=== PATIENT | male | born 1950 | race Caucasian/White ===

== ENCOUNTER → 2023-12-09 08:00 | Outpatient (REF) | payer OTHER, SELFPAY | LOC: RAD 08:00 | PROVIDERS: ATTENDING PHYSICIAN Family Medicine | DX: I71.21 Aneurysm of the ascending aorta, without rupture (principal) | CPT/HCPCS: 71275; Q9967 ==

== ENCOUNTER → 2025-01-29 08:52 | Outpatient (REF) | payer OTHER, SELFPAY | LOC: RAD 08:52 | PROVIDERS: ATTENDING PHYSICIAN Thoracic Surgery (Cardiothoracic Vascular Surgery); FAMILY PHYSICIAN Family Medicine | DX: I71.21 Aneurysm of the ascending aorta, without rupture (principal) | CPT/HCPCS: 71275; Q9967 ==

== ENCOUNTER → 2025-02-28 15:56 | Outpatient (REF) | payer OTHER, SELFPAY | LOC: HWRCS 15:56 | PROVIDERS: ATTENDING PHYSICIAN Nurse Practitioner Acute Care; FAMILY PHYSICIAN Family Medicine | DX: I71.21 Aneurysm of the ascending aorta, without rupture (principal) | CPT/HCPCS: 93306 ==